=== PATIENT | female | born 1950 | race Caucasian/White ===

== ENCOUNTER 2016-10-20 00:28 | Emergency (ER) | payer OTHER | END 2016-10-20 01:25 | disposition home or self-care (01) | LOC: FER 00:28 | DX: M54.32 Sciatica, left side (principal); G71.11 Myotonic muscular dystrophy; I10 Essential (primary) hypertension; Z88.0 Allergy status to penicillin; Z79.01 Long term (current) use of anticoagulants; Z79.899 Other long term (current) drug therapy; Z86.711 Personal history of pulmonary embolism; Z86.718 Personal history of other venous thrombosis and embolism | CPT/HCPCS: J1885; J2930 ==